=== PATIENT | male | born 1985 | race African-American/Black ===

== ENCOUNTER 2018-03-05 08:29 | Emergency (ER) | payer SELFPAY ==
[~2018-03-05] VITALS: Ht 188 cm; Wt 92.0 kg
[2018-03-05] MEDS ORDERED: BUSP30TA2 PO (08:38)
[2018-03-05] MEDS ORDERED: AMLO2.5T45 PO (08:38)
[2018-03-05] MEDS ORDERED: SERT25TA PO (08:38)
[2018-03-05] MEDS ORDERED: ALBU2.5V13 IH (08:38)
[2018-03-05] MEDS ORDERED: LIDOCAINE HCL 1%/EPI 1:200,000 30 ML VIAL MC ONE (11:00)
[2018-03-05] MEDS ORDERED: BACITRACIN ZINC OINT UDPKT TOP ONE (11:00)
[2018-03-05] MEDS ORDERED: TETANUS, DIPHTHERIA, PERTUSSIS VAC/PF 0.5ML (>7YR OLD) IM ONE (11:00)
[2018-03-05 11:21] VITALS: BP 142/99
== END 2018-03-05 11:28 | disposition home or self-care (01) ==
LOC: ER 11:24
DX: S31.111A Laceration without foreign body of abdominal wall, left upper quadrant without penetration into peritoneal cavity, initial encounter (principal); I10 Essential (primary) hypertension; F41.9 Anxiety disorder, unspecified; J45.909 Unspecified asthma, uncomplicated; F32.9 Major depressive disorder, single episode, unspecified; F12.10 Cannabis abuse, uncomplicated; W26.8XXA Contact with other sharp object(s), not elsewhere classified, initial encounter; Y93.89 Activity, other specified; Y92.018 Other place in single-family (private) house as the place of occurrence of the external cause
CPT/HCPCS: 12001; 90471; 90715; 99283; Z7610